=== PATIENT | female | born 1930 | race Caucasian/White ===

== ENCOUNTER 2017-01-25 14:18 | Emergency (ER) | payer MEDICARE ==
[~2017-01-25] VITALS: Ht 152.4 cm; Wt 59.9 kg
[~2017-01-25 14:18] MED LIST: ACEPHEN650 MG PR; ACTONEL35 MG PO; ALBUTEROL2 PUFFS/17 IN; ALL DAY ALLERGY10 M2 PO; AMLO5TAB PO; AMLODIPINE BES10 MG PO; AMLODIPINE5 M1 PO; AMOXIL500 MG PO; APAP ARTHRITIS650 MG PO; ARTHRITIS PAIN650 M1 PO; ASCRIPTIN325 MG PO; ASPIRIN325 M1 PO; AVAPRO 150MG T150 MG PO; BACTRIM DS 8001 TA1 PO; BACTROBAN2% TP; CALCIUM600 MG PO; CARVEDILOL 25MG25 MG PO; CEFDINIR300 M1 PO; CIPROFLOXACIN500 MG PO; COREG25 MG PO; D-10001 TAB PO; FAMOTIDINE 20MG20 MG PO; FAMOTIDINE20 MG PO; FEXOFENADINE180 MG PO; FLONASE 50 MCG16 GM; FLUOXETINE HYDR20 MG PO; FLUOXETINE20 MG PO; GLUCOSAMINE CHO1 CAP PO; HCTZ/TRIAMTEREN1 CAP PO; K-DUR 20MEQ TA20 MEQ PO; KEFLEX 500MG.500 MG PO; LOSARTAN POTAS100 MG PO; LOVASTATIN40 MG PO; MELOXICAM15 MG PO; MOTRIN 600MG.600 MG PO; MYRBETRIQ50 MG PO; OXYGEN IH; PEPCID20 MG PO; PREDNISONE 20MG20 MG PO; PREDNISONE20 MG PO; SEPTRA DS 800 M1 TAB PO; TAMIFLU 75MG CA75 MG PO; TYLENOL 8 HOUR650 MG PO; XARELTO15 MG PO; ZITHROMAX Z PA250 MG PO; ZITHROMAX Z-PA250 M2 PO; ZYRTEC10 M2 PO; [UNRECOGNIZED DRUG - OTHER] MM; [UNRECOGNIZED DRUG - OTHER] PO
[2017-01-25] MEDS ORDERED: ACYCLOVIR800 MG PO (15:22)
--- NOTE | 2017-01-25 15:22 | [facility]gent [facility] Report ---
History of Present Issue Date/Time Seen by Provider 01/25/17 1506 Visit Reason Pt arrived:Walked Presenting Problem:RASH TO RIGHT SIDE BEGAN WEDNESDAY, STATES SHE HAS SHINGLES Location if Accident: Onset of symptoms date/time:/ or onset unknown for:MEDICAL HX UNKNOWN Have you (or family members/close friends) recently traveled outside the [place]? N If Yes, where/when: Have you had exposure to infectious disease within the past month? TB? Other? Specify: Patient state that she had shingles years ago and thinks she may have them again State that she noticed on Wednesday that she began to break out on her stomach and side State that the areas itch then burn after she scratches or touches them State that it feels like it did last time she had shingles ALLERGIES Coded Allergies: diphenhydramine (From BENADRYL) (09/24/16) morphine (01/25/17) Home Medications Active Scripts IRBESARTAN (Irbesartan) 150 MG PO DAILY #30 TAB Prov: 02/03/16 Rivaroxaban (Xarelto) 15 MG PO DAILY #30 TAB Prov: 02/03/16 Device (Oxygen (Concentrator)) 1 UNIT IH CONSTANT #1 Ref 5 Prov: 03/06/16 MUPIROCIN 2% (Bactroban Oint) 0 GM TP DAILY #1 TUBE Prov: 09/24/16 Reported Medications Carvedilol (Coreg 25MG) 25 MG PO BID CHOLECALCIFEROL (VITAMIN D3) (Vitamin D) 1 TAB PO DAILY Fluoxetine Hcl (Fluoxetine 20MG) 20 MG PO DAILY Lovastatin 40 MG PO QHS Calcium Carbonate (Calcium) 1,200 MG PO BID Famotidine 20 MG PO BID Hydrochlorothiazide W/Triamter (Triamterene-Hctz 37.5-25 MG Tb) 1 CAP PO DAILY #30 Acetaminophen (Arthritis Pain Relief) 650 MG PO BID History Medical History General CAD? No Angina: Yes MA: Yes Hypertension? Yes Hyperlipidemia? Yes CHF? No DVT? No PE? No COPD? Yes Asthma? No Anemia? No GERD? No Gastric ulcers? No GI Bleed? No Hernia? No Thyroid Problems? No Hypothyroidism? No CVA? No Seizures? No Diabetes? No Insulin Dependent: No Insulin Pump: No Home FSBS? No Renal Insuffiency? No UTI? No Stones? No BPH? No GB Disease: No Nephritic Syndrome? No Asplenia? No Hepatitis? No Sickle Cell Disease? No Arthritis? Yes Migraines? No Cataracts? No Glaucoma? No MRSA? No HIV? No TB? No Anxiety? Yes Depression? No Cancer? No More? Yes Additional hx: Pericarditis. 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 No: respiratory distress. Cardiovascular normal exam, regular rate/rhythm, no peripheral edema Neurologic alert, normal exam, oriented x 3 Skin rash, shingles, Red blister like rash on right side just under bra line and around rib area, several red blister like lesions on abdomen like that seen with shingles Medical Decision Making LABS/Meds/Orders Pt receiving controlled substance in ED? No Departure Departure Time of Disposition 1519 Disposition DC Home or Self Care(routine) Clinical Impression Primary Impression: Shingles Qualifiers: Herpes zoster complications: without complications Qualified Code: B02.9 - Zoster without complications Condition STABLE Referrals Molina BARNETT,Tony (Family) Patient Instructions DI for Shingles, Shingles Additional Instructions Take medication as prescribed DO not be around anyone REturn if needed Over the counter Motrin or Tylenol as needed for pain Discharge Counseling Counseled pt/family regarding diagnosis, medications/RX, home care, follow up needs Prescriptions Current Visit Scripts Acyclovir (Acyclovir 800MG) 800 MG PO 5XDAY #35 TAB at 6426
[2017-01-25 15:23] VITALS: BP 139/60
== END 2017-01-25 15:24 | disposition home or self-care (01) ==
LOC: UTC 14:18
DX: B02.9 Zoster without complications (principal); I10 Essential (primary) hypertension; J44.9 Chronic obstructive pulmonary disease, unspecified; I25.2 Old myocardial infarction; Z79.01 Long term (current) use of anticoagulants; Z99.81 Dependence on supplemental oxygen; Z79.899 Other long term (current) drug therapy; Z88.5 Allergy status to narcotic agent; Z88.8 Allergy status to other drugs, medicaments and biological substances; Z95.5 Presence of coronary angioplasty implant and graft; Z96.642 Presence of left artificial hip joint